=== PATIENT | female | born 1960 | race Caucasian/White ===

== ENCOUNTER 2018-03-16 08:30 | Outpatient (CLI) | payer BC ==
[~2018-03-16 08:30] MED LIST: HYDR-3965 PO; IBUP-1984 PO; PHEN100C4 PO; TRAM50TA2 PO
== END 2018-03-16 23:59 | disposition home or self-care (01) ==
LOC: RAD 08:30
PROVIDERS: ATTEND Physician Assistant
DX: G40.909 Epilepsy, unspecified, not intractable, without status epilepticus (principal); Z79.899 Other long term (current) drug therapy
CPT/HCPCS: 95816

== ENCOUNTER 2021-06-05 10:05 | Emergency (ER) | payer BC ==
[~2021-06-05] VITALS: Ht 157.5 cm; Wt 66.5 kg
[~2021-06-05 10:05] MED LIST changes: +PHEN100C12 PO
[2021-06-05] MEDS ORDERED: apixaban 5mg tablet PO STA (12:24)
[2021-06-05 12:26] LABS: BASOPHILS % (AUTO) 0.6 % (0-1); EOSINOPHILS # (AUTO) 0.2 X10'3 (0-0.9); EOSINOPHILS % (AUTO) 2.3 % (0-6); HEMATOCRIT 41.2 % (35.0-45.0); HEMOGLOBIN 13.9 g/dl (12.0-16.0); LYMPHOCYTES # (AUTO) 1.4 X10'3 (1.1-4.8); LYMPHOCYTES % (AUTO) 21.1 % (21-51); MEAN CORPUSCULAR HEMOGLOBIN 30.8 PG (27.0-31.0); MEAN CORPUSCULAR HGB CONC 33.7 g/dL (33.0-36.5); MEAN CORPUSCULAR VOLUME 91.4 FL (78-98); MEAN PLATELET VOLUME 9.3 FL (7.4-10.4); MONOCYTES # (AUTO) 0.5 X10'3 (0-0.9); MONOCYTES % (AUTO) 7.5 % (2-12); NEUTROPHILS # (AUTO) 4.6 X10'3 (1.8-7.7); NEUTROPHILS % (AUTO) 68.5 % (42-75); PLATELET COUNT 187 X10'3 (140-440); RED BLOOD COUNT 4.51 X10'6 (4.20-5.60); WHITE BLOOD COUNT 6.7 X10'3 (4.5-11.0)
[2021-06-05 12:49] LABS: ALANINE AMINOTRANSFERASE 18 U/L (12-78); ALBUMIN 3.6 G/DL (3.4-5.0); ALBUMIN/GLOBULIN RATIO 1.1 (1.1-1.5); ALKALINE PHOSPHATASE 156 IU/L (46-116); ANION GAP 12 (8-16); ASPARTATE AMINO TRANSFERASE 14 U/L (10-37); BILIRUBIN,TOTAL 0.3 MG/DL (0.1-1.0); BLOOD UREA NITROGEN 12 MG/DL (7-18); BUN/CREATININE RATIO 17.1 (6.6-38.0); CALCIUM 8.9 MG/DL (8.5-10.1); CHLORIDE 107 MMOL/L (99-107); GLUCOSE 86 MG/DL (70-104); POTASSIUM 4.1 MMOL/L (3.5-5.1); SODIUM 143 MMOL/L (135-145); TOTAL CARBON DIOXIDE 24.2 MMOL/L (24-32); TOTAL PROTEIN 6.8 G/DL (6.4-8.2); eGFR 86 ML/MIN
[2021-06-05] MEDS ORDERED: APIX5TAB3 PO ×2 (12:53)
[2021-06-05 13:43] VITALS: BP 174/82
== END 2021-06-05 13:44 | disposition home or self-care (01) ==
LOC: ER 10:07
DX: I82.431 Acute embolism and thrombosis of right popliteal vein (principal); M79.604 Pain in right leg; Z86.69 Personal history of other diseases of the nervous system and sense organs; Z79.899 Other long term (current) drug therapy
CPT/HCPCS: 36415; 80053; 84484; 85025; 85610; 93970; 99284

== ENCOUNTER 2025-07-18 07:49 | Emergency (ER) | payer BC ==
[~2025-07-18] VITALS: Ht 154.9 cm; Wt 66.5 kg
[~2025-07-18 07:49] MED LIST changes: +APIX5TAB3 PO
[2025-07-18 07:52] VITALS: TEMP 97.6
--- NOTE | 2025-07-18 08:17 | Physician Documentation ---
History of Present Illness General Chief Complaint: Hand pain Stated Complaint: FALL/HAND PAIN Time Seen by MD: 08:15 OK to notify your PCP?: No Primary Medical Doctor: None Source: patient, family, RN notes reviewed Mode of Arrival: POV Exam Limitations: no limitations History of Present Illness Initial Comments 64-year-old female, with a history of hypertension and left knee replacement, presents complaining of right wrist pain beginning around 0500 this morning after she tripped on a rug and fell forward, landing on her outstretched right hand. She had sudden onset of pain that has been constant, worse with a attempted movement. The pain is rated 10/10 at the worst. She denies any other injuries during the fall and denies any head trauma or loss of consciousness. She has applied ice to the wrist but has not taken any medications for pain. Medication Reconciliation Allergies: Coded Allergies: No Known Allergies (Unverified , 07/23/18) Scheduled Apixaban (Eliquis), 2 TAB PO Q12H Apixaban (Eliquis), 5 MG PO BID Ibuprofen* (Motrin*), 800 MG PO Q8H, (Reported) Phenytoin Sodium Extended (Dilantin), 5 CAP PO DAILY, (Reported) Phenytoin Sodium Extended (Phenytoin Sodium Extended), 1 CAP PO HS Tramadol HCl (Tramadol HCl), 1 TABLET PO TID, (Reported) Scheduled PRN Hydrocodone Bit/Acetaminophen 5/325 MG (Ford 5/325 MG), 1-2 TAB PO Q4-6 hours PRN for moderate or severe pain, (Reported) Hydrocodone Bit/Acetaminophen 5/325 MG (Ford 5/325 MG), 1 TAB PO Q6H PRN for pain Past Medical History Past Medical History: Seizures, Hypertension, Deep Vein Thrombosis Past Surgical History: orthopedic surgeries Smoking: Non-Smoker Drug Use: none Lives In: Assisted Care Review of Systems All Other Systems at this time: Reviewed and Negative ROS Right wrist pain as well as other positive symptoms as stated above in the HPI, otherwise all systems are reviewed and negative. Physical Exam Physical Exam Vital Signs: RN Vital Signs have been reviewed: Yes, Temperature: 97.6, Source: Temporal, Heart Rate: 77, Respiratory Rate: 18, BP: 174/81, Pulse Oximetry: 100, Weight: 66.500 Oxygen Flow Rate: 0 Pulse Oximetry Reflects: adequate oxygenation Physical Exam VITALS: Reviewed and as above. GENERAL: Alert, no apparent distress. HEENT: Normocephalic, atraumatic, PERRL, EOMI, dry mucosa RESPIRATORY: Lungs clear, normal breath sounds, no respiratory distress. CHEST: No accessory muscle use, no retractions CV: Regular rate, rhythm, no edema, no murmur, No: JVD MUSCULOSKELETAL: Tenderness to right wrist with deformity, decreased ROM of right wrist, normal sensation and movement of all fingers. No deformities, no edema SKIN: Warm and dry, no rash NEURO: Oriented x4, No motor or sensory deficit PSYCH: Normal mood and affect, no agitation Procedures Splinting Location: right wrist Hand-Made Type: plaster Splint: sugar-tong Pre-Proc Neuro Vasc Exam: normal Post-Proc Neuro Vasc Exam: normal Splint Placed By: fish cutter Progress placed in right arm sling Joint Reduction Joint Reduction : Joint Reduction Site: right wrist Reduction By: myself, other (CAMPBELL Corrales) Conscious Sedation: Yes Medications/Dose: see below Reduction Attempts: 1 Pre-Procedure NV Exam: within normal limits Post-Procedure NV Exam: within normal limits Post Reduction Film: joint reduced, acceptable alignment Tolerated Procedure Well?: yes, no complications Nerve Block Nerve Block Site: right wrist hematoma block Anesthetic Used: lidocaine 1% (w/ epi) Volume Anesthetic (ccs): 10 Tolerated Procedure Well?: yes, no complications Moderate Sedation : Date of Procedure: Jul 18, 2025 Chief Complaint: right radial fracture See Completed H&P Dated: Jul 18, 2025 Pulmonary Assessment: Unremarkable Neurological Assessment: seizures Cardiovascular Assessment: Unremarkable Other Systems: Unremarkable Hx of sedation difficulty?: No Medications: None ASA Class: I-normal healthy Mallampati Score/Visibility of: Class 1-full Medication Used: Diprivan (100mg) Staff Present: primary nurse, respiratory manager, orthodontist assistant, other (tech, WALL CRANE OPERATOR) Monitoring: monitor worker, Spo2, NIPB, patient on oxygen via N/C, suction ready, crash cart at bedside, BVM ready Tolerated Procedure Well?: yes, no complications Duration of Procedure (min): 10 Progress Progress Note 1033: Case discussed with Dr. Morley, orthopedic surgeon, who reviewed x-rays and agrees with plan for outpatient followup and recommends calling his office tomorrow. Results/Orders Results/Orders Orders - OHLFS,PASCALE Collins MD Forearm,Incl.One Joint (07/18/25 07:59) Completed Orders - OHLFSPASCALE MD Forearm,Incl.One Joint (07/18/25 07:59) Hydrocodone/Apap 10/325 (Ford 10/325mg (07/18/25 08:35) Propofol Inj (Diprivan Inj) (07/18/25 09:15) Vital Signs 07/18/25 07/18/25 07/18/25 07/18/25 07:52 09:09 09:21 10:13 Temp 97.6 Pulse 77 78 77 Resp 18 17 19 13 B/P (MAP) 174/81 179/87 (117) 138/66 155/78 135/71 Pulse Ox 100 98 99 O2 Delivery Room Air O2 Flow Rate 0 0 0 07/18/25 07/18/25 07/18/25 07/18/25 10:13 10:30 10:44 11:22 Pulse 73 73 82 98 Resp 12 13 11 10 B/P (MAP) 135/71 (92) 124/66 (85) 151/77 (101) 138/70 Pulse Ox 96 98 97 98 O2 Delivery Room Air O2 Flow Rate 0 0 0 EKG/XRAY/CT/US/VASC/MRI Bone/Soft Tissue X-Ray (Ext.) #1: Additional Comment Indication: RT.ARM PAIN AFTER FALL Technique: DI FOREARM,INCL.ONE JOINTFOREARM Comparison: None FINDINGS/IMPRESSION: Distal radial meta diaphyseal fracture that is severely comminuted, with intra- articular extension. There is mild dorsal angulation of the distal fracture segments. Surrounding soft tissue edema. Reviewed by myself. Bone/Soft Tissue X-Ray (Ext.) #2: Interpreted By: radiologist Additional Comment Indication: POST REDUCTION RT. WRIST, WILL CALL Technique: DI WRIST,LIMITED (AP/LAT)WRIST LTD Comparison: Forearm radiograph from today FINDINGS/IMPRESSION: The overlying splint/ cast obscures fine bone detail. Distal radial meta diaphyseal fracture with intra-articular extension. There is still dorsal displacement of fracture segments by approximately 9 mm. Diffuse right wrist /distal forearm soft tissue edema. reviewed by myself Medical Decision Making Additional info obtained from: old records (Last seen in 2020 for DVT) Findings Patient is a 64-year-old female with a fall on an outstretched arm who had a displaced fracture of her distal radius and ulna, with fairly significant angulation. The patient was consented for conscious sedation and reduction. The patient has a 10 mL hematoma block with 1% lidocaine with epinephrine which was injected dorsally into the area of the fracture utilizing ultrasound guidance. The patient then had reduction utilizing 100 mg of propofol the patient was reduced at the bedside and then splinted in a sugar-tong with acceptable reduction of the fracture. Case has been discussed with the orthopedist who was on-call Dr. Morley he agrees to follow up with the patient and states that she will need surgery. The patient's plain film x-rays were reviewed by me they demonstrate angulated fracture of the distal radius and ulna, there was no dislocation there was significant soft tissue swelling impression is fracture. I have also reviewed the radiologist's interpretation as well. Prior hospitalizations were reviewed. The patient's pulse oximetry was interpreted as normal the monitor worker was interpreted as a sinus rhythm. The patient was comfortable the time of discharge she will be discharged with 10 mg of Ford prescription and she has been advised to return for worsening of her symptoms. Departure Time of Disposition: 10:34 Disposition: 01 HOME / SELF CARE / HOMELESS Impression: Primary Impression: Closed right radial fracture Qualified Codes: S52.501A - Unspecified fracture of the lower end of right radius, initial encounter for closed fracture Additional Impression: Fall Qualified Codes: W19.XXXA - Unspecified fall, initial encounter Condition: Stable Discharge Instructions: Wrist Fracture Treated With Immobilization, [id number] Additional Instructions: Follow up with Dr. Nunez, orthopedic surgeon. Call his office this week to establish an appointment. Keep your right arm elevated. Return to the ER for new or worsening symptoms or other concerns. Departure Forms: Excuse form Work or School Excused From: Work Excuse beginning now through the following date: Jul 31, 2025 Referrals: JAN MORLEY MD Prescriptions Hydrocodone Bit/Acetaminophen 5/325 MG (Ford 5/325 MG) 5 Mg/325 Mg Tablet 1 TAB PO Q6H PRN for pain, #12 TAB Prov: PASCALE GONZALEZ MD 9/1/25 Education Educated: Patient Educated regarding: diagnosis, treatment, need for follow up Signature Scribe Signature: Scribed for Pascale Gonzalez MD by Rita Fair . 07/18/25 08:36 Attestation: The note accurately reflects work and decisions made by me.Pascale Gonzalez MD 07/19/25 07:09 PASCALE GONZALEZ MD Jul 18, 2025 08:17 RITA HATCH Jul 18, 2025 08:42
--- NOTE | 2025-07-18 08:28 | RADIOLOGY REPORT ---
Indication: RT.ARM PAIN AFTER FALL Technique: DI FOREARM,INCL.ONE JOINTFOREARM Comparison: None FINDINGS/IMPRESSION: Distal radial meta diaphyseal fracture that is severely comminuted, with intra-articular extension. T here is mild dorsal angulation of the distal fracture segments. Surrounding soft tissue edema.
[2025-07-18] MEDS: HYDROcodone/acetaminophen 10/325mg tab PO ONE (09:09)
[2025-07-18] MEDS: propofol 10mg/ml 20ml vial IV ONE (10:00)
--- NOTE | 2025-07-18 10:25 | RADIOLOGY REPORT ---
Indication: POST REDUCTION RT. WRIST, WILL CALL Technique: DI WRIST,LIMITED (AP/LAT)WRIST LTD Comparison: Forearm radiograph from today FINDINGS/IMPRESSION: The overlying splint/ cast obscures fine bone detail. Distal radial meta diaphyseal fracture with intra-articular extension. There is still dorsal displac ement of fracture segments by approximately 9 mm. Diffuse right wrist /distal forearm soft tissue edema.
[2025-07-18] MEDS ORDERED: HYDR-3965 PO (10:37)
[2025-07-18 11:22] VITALS: BP 138/70; PULSE 98; RESP 10; O2SAT 98
== END 2025-07-18 11:33 | disposition home or self-care (01) ==
LOC: ER 07:50
DX: S52.571A Other intraarticular fracture of lower end of right radius, initial encounter for closed fracture (principal); I10 Essential (primary) hypertension; Z86.718 Personal history of other venous thrombosis and embolism; Z79.899 Other long term (current) drug therapy; W18.09XA Striking against other object with subsequent fall, initial encounter; Y93.89 Activity, other specified; Y92.89 Other specified places as the place of occurrence of the external cause; Y99.8 Other external cause status
CPT/HCPCS: 25605; 73090; 73100; 99152; 99285; J2704; A4565; A4620; A6446; A6449

== ENCOUNTER 2025-07-25 08:14 | Day surgery (SDC) | payer BC ==
[2025-07-22 14:16] LABS: MEAN PLATELET VOLUME 9.3 FL (7.4-10.4); PRE OP HEMATOCRIT 34.2 % (35.0-45.0); PRE OP HEMOGLOBIN 11.9 g/dL (12.0-16.0); PRE OP PLATELET COUNT 221 X10'3 (140-440); PRE OP WHITE BLOOD COUNT 5.6 10'3 (4.8-10.8); RED CELL DISTRIBUTION WIDTH 13.1 % (11.5-14.5)
--- NOTE | 2025-07-22 14:20 | ELECTROCARDIOGRAPH REPORT ---
[facility] Test Date: 2025-07-22 Test Time: 14:18:36 Pat Name: CHI KIRK Department: [facility]-PRE-OP Patient ID: [facility]-[id number] Room: Gender: F Record Center Coordinator: letty : 1960 Requested By: BROCK FARAH Order Number: [id number] Reading MD: Dr. MARCELL Ybarra Measurements Intervals [place] Rate: 65 P: 44 UT: 146 QRS: 48 QRSD: 98 T: 55 QT: 428 QTc: 445 Interpretive Statements Sinus rhythm Electronically Signed On 07-22-2025 17:03:[address] MARCELL Ybarra Please click the below link to view image of tracing.
[2025-07-22 14:38] LABS: CREATININE 1.32 MG/DL (0.40-0.90); PRE OP ALT 23 U/L (30-65); PRE OP ANION GAP 7 (8-16); PRE OP AST 14 U/L (10-37); PRE OP BILIRUB, TOTAL 0.7 MG/DL (0.0-1.0); PRE OP GLUCOSE 137 MG/DL (70-104); PRE OP POTASSIUM 4.1 MMOL/L (3.4-5.1); PRE OP SODIUM 139 MMOL/L (135-145); TOTAL CARBON DIOXIDE 22.6 MMOL/L (24-32); eGFR 41 ML/MIN
[2025-07-25] VITALS (8 sets, daily range): BP systolic 123–155; BP diastolic 62–78; PULSE 71–78; RESP 12–17; TEMP 96.7; O2SAT 95–100
[~2025-07-25] VITALS: Ht 154.9 cm; Wt 66.0 kg
[2025-07-25] MEDS: ceFAZolin 2gm/dext,iso 50mL 50 ML IV ONE (05:30)
[~2025-07-25 08:14] MED LIST changes: -APIX5TAB3 PO; +ATOR20TA66 PO; -IBUP-1984 PO; +LEVE750T PO; +LISI30TA4 PO; -PHEN100C12 PO; -PHEN100C4 PO; -TRAM50TA2 PO
[2025-07-25] MEDS ORDERED: labetalol 20mg/4ml (5mg/ml) syringe IV PRN (09:05)
[2025-07-25] MEDS ORDERED: ringers solution, lacted 1,000 ML IV SCH (09:05)
[2025-07-25] MEDS ORDERED: hydrALAZINE 20mg/ml inj. IV PRN (09:05)
[2025-07-25] MEDS ORDERED: morphine 4 MG/ML inj SYRINge IV PRN (09:05)
[2025-07-25] MEDS ORDERED: fentaNYL/PF 50MCG/1 ML 2ML syringe IV PRN ×2 (09:05)
[2025-07-25] MEDS ORDERED: ondansetron/PF 4mg/2ml inj IV PRN (09:05)
[2025-07-25] MEDS ORDERED: BUPIVAcaine/PF 2.5mg/ml (0.25%) 10ml vial ONE (09:18)
[2025-07-25] MEDS: ringers solution, lacted 1,000 ML IV SCH (09:31)
[2025-07-25] MEDS ORDERED: fentaNYL/PF 50MCG/1 ML 2ML syringe ONE ×2 (09:39→10:34)
[2025-07-25] MEDS ORDERED: dexamethasone sod phosphate 4mg/ml inj. ONE (09:39)
[2025-07-25] MEDS ORDERED: ondansetron/PF 4mg/2ml inj ONE (09:39)
[2025-07-25] MEDS ORDERED: ROPIVAcaine 0.5% (5mg/ml) 30ml vial ONE ×2 (09:39)
[2025-07-25] MEDS ORDERED: propofol inj 20 ML IV ONE ×2 (09:39)
[2025-07-25] MEDS ORDERED: midazolam 1 mg/ML 2ml injection ONE (09:39)
[2025-07-25] MEDS ORDERED: LIDOcaine 1%/PF 5ML 10 MG/ML VIAL ONE (09:40)
[2025-07-25] MEDS ORDERED: acetaminophen 1,000mg/100ml IV 100 ML IV ONE (10:09)
[2025-07-25] MEDS ORDERED: ePHEDrine 50MG/ML INJ. ONE (10:18)
--- NOTE | 2025-07-25 10:32 | ANESTHESIA RECORDS ---
Nerve Block Providers to CC CC: BROCK FARAH Jr., MD ~ Diagnosis: Nerve Block requested by: BROCK FARAH Jr., MD Neuraxial/Peripheral Nerve Block requested for Post-operative analgesia by Physician above DIAGNOSIS: Post-operative pain. (Body Area) Shoulder: [ ] Arm: [ ] Hand: [ ] Hip: [ ] Knee: [ ] Ankle: [ ] Foot: [ ] Leg: [ ] Abdomen: [ ] Other: [ ] Post-operative pain expected to be/is inadequately managed by oral or IV medicines. Regional anesthetic expected to facilitate rehabilitation and/or discharge from facility. Other:[ _] Procedure Performed: Axillary: Right Time out Done?: Yes Time of Time out: 09:42 Procedure Details: PROCEDURE DETAILS: Risks, benefits and alternatives explained Informed consent obtained, and patient wishes to proceed Conscious sedation with indicated monitors Patient positioned, pertinent anatomy defined, sterile technique used Needle used: [ ] 3 1/8 inch Stimuplex Ultra 22ga [ X] 4 inch Stimuplex Ultra 20ga [ ] 6 inch Stimuplex Ultra 20ga [ ] 6 inch, Quikbloc over the needle catheter set 20ga [ ] 4 inch Quikbloc over the needle catheter set 20ga [ ]Other: [ ] Loss of twitch @ [__0.4 ]mA [X ] Single Injection [ ] Catheter Ultrasound Guidance Used: [X ] Yes [ ] No Attempts:[_1 ] Medicines injected: [ ]Clonidine Amt:[ ] [X ]Dexamethasone Amt:[ 2mg ] [X ]Ropivacaine Amt:[_0.5% 40 c.c ] [ ]Bupivacaine Amt:[ ] [ ]Lidocaine Amt:[ ] [ ]Exparel 1.33%:[ ] [ ]Epinephrine Amt[ ] [ ]Other: [ ] Intermittent aspiration during local anesthetic administration No symptoms of intraneural or intravenous injection Patient tolerated procedure well Comments Right Axilla examined with Ultrasound and Axillary vessels,Brachial plexus bundles identified. Needle near the bundle,Upon stimulation motor response noted. 30 c.c local moix is distributed. spread is noted. Ultraound image captured,documented. Right coraco brachialis is examined with Ultrasound and Musculo cutaneosus nerve is identified. Needle is near the bundle and 10 c.c local mix injected. SB URIAS MD Jul 25, 2025 10:32
--- NOTE | 2025-07-25 13:03 | OPERATIVE REPORT ---
Operative Report Providers to ~ Date of Procedure: Jul 25, 2025 Pre-Operative Diagnosis: Right wrist distal radius fracture, closed Post-Operative Diagnosis SAME as PRE-Op Procedure Performed Open reduction internal fixation of right distal radius fracture 3+ fragments Surgeon: Xavier Nunez MD Forestry Support Specialist None Anesthesiologist: José Miguel Curiel Type of Anesthesia: Regional Findings: Prosthetics\Implants used: Bone bridge standard distal radius locking plate Estimated Blood Loss: None Specimen Removed: None Description of Procedure: The patient is a 64-year-old woman who suffered a distal radius fracture with the displacement mostly in the dorsal but also in a radial direction. Angu lation is unacceptable and surgery is indicated to stabilize fracture and restore function. Risks and benefits were discussed with the patient and she agreed to proceed. In the operating room axillary block was given along with a general anesthetic. The arm was then prepped and draped in usual manner. Standard volar radial approach was made between the flexor carpi radialis and the radial artery. The pronator was elevated off the distal radius and the fracture fragments were identified. Under fluoro the fracture was manually reduced. The plate was placed on under fluoro and provisionally affixed proximally. Once the proper p late alignment was confirmed a total of three screws were placed proximally and then while holding the reduction in place with a K-wire three locking distal screws were placed in the subcortical bone. Fluoro imaging showed good position of the fracture and the hardware. The incision was then irrigated and closed in layers. A sterile dressing was applied along with a splint. The tourniquet was released the hand perfused well. The patient was awakened and taken to the recovery room in stable condition and tolerated the procedure well. XAVIER NUNEZ Jr., MD Jul 25, 2025 13:03
== END 2025-07-25 12:12 | disposition home or self-care (01) ==
LOC: PAS 08:14
PROVIDERS: ATTEND Orthopaedic Surgery Hand Surgery
DX: S52.571A Other intraarticular fracture of lower end of right radius, initial encounter for closed fracture (principal); G89.18 Other acute postprocedural pain; I10 Essential (primary) hypertension; E78.00 Pure hypercholesterolemia, unspecified; K21.9 Gastro-esophageal reflux disease without esophagitis; Z79.1 Long term (current) use of non-steroidal anti-inflammatories (NSAID); Z79.891 Long term (current) use of opiate analgesic; Z79.899 Other long term (current) drug therapy; Z96.652 Presence of left artificial knee joint; Z98.890 Other specified postprocedural states; Z82.49 Family history of ischemic heart disease and other diseases of the circulatory system; W01.0XXA Fall on same level from slipping, tripping and stumbling without subsequent striking against object, initial encounter; Y93.89 Activity, other specified; Y92.89 Other specified places as the place of occurrence of the external cause; Y99.8 Other external cause status
CPT/HCPCS: 25609; 36415; 64415; 80053; 82948; 85025; 93005; A6222; C1713; J0131; J1100; J2250; J2405; J2704; J2795; J3010; J3490; J7030; J7120; Z7506; Z7508; Z7512; A4215; A4565; A4618; A6449; A7000